=== PATIENT | female | born 1960 | race Caucasian/White ===

== ENCOUNTER 2019-03-20 15:21 | Emergency (ER) | payer MEDICAID ==
[~2019-03-20] VITALS: Ht 154.9 cm; Wt 121.1 kg
[2019-03-20 15:38] VITALS: Ht 154.9 cm; Wt 121.1 kg
[2019-03-20 20:54] VITALS: BP 163/56
== END 2019-03-20 21:11 | disposition home or self-care (01) ==
LOC: ED 15:21
DX: S43.401A Unspecified sprain of right shoulder joint, initial encounter (principal); S09.8XXA Other specified injuries of head, initial encounter; M79.89 Other specified soft tissue disorders; W01.0XXA Fall on same level from slipping, tripping and stumbling without subsequent striking against object, initial encounter; Y93.89 Activity, other specified; Y92.89 Other specified places as the place of occurrence of the external cause; Y99.8 Other external cause status
CPT/HCPCS: J1885; Q0092

== ENCOUNTER 2019-03-31 13:54 | Emergency (ER) | payer MEDICAID ==
[~2019-03-31] VITALS: Ht 154.9 cm; Wt 117.9 kg
[2019-03-31 13:55] VITALS: Ht 154.9 cm; Wt 117.9 kg
[2019-03-31 17:01] VITALS: BP 102/89
== END 2019-03-31 17:01 | disposition home or self-care (01) ==
LOC: ED 13:54
DX: M54.31 Sciatica, right side (principal); I10 Essential (primary) hypertension; E11.9 Type 2 diabetes mellitus without complications; F32.9 Major depressive disorder, single episode, unspecified; E78.00 Pure hypercholesterolemia, unspecified; M19.90 Unspecified osteoarthritis, unspecified site
CPT/HCPCS: J3010; Q0162

== ENCOUNTER 2020-04-16 04:21 | Emergency (ER) | payer OTHER ==
[~2020-04-16] VITALS: Ht 154.9 cm; Wt 129.3 kg
[2020-04-16 04:32] VITALS: Ht 154.9 cm; Wt 129.3 kg
[2020-04-16 05:17] LABS: microscopic required? NO
[2020-04-16 05:33] LABS: BASOPHIL % 1.3 % (0-2); PLATELET COUNT 211 x10^3mcL (130-400); RED CELL DISTRIBUTION WIDTH 15.4 % (11.5-14.5)
[2020-04-16 05:40] LABS: UA SPECIFIC GRAVITY 1.015 (1.005-1.035); urine erythrocyte NEGATIVE (NEGATIVE)
[2020-04-16 05:44] LABS: CALCIUM 8.1 mg/dL (8.5-10.1); CARBON DIOXIDE 30.4 mmol/L (21-32); CHLORIDE SERUM 103 mmol/L (98-107); CREATININE SERUM 0.9 mg/dL (0.6-1.0); GFR1 > 60 mL/min; GLUCOSE SERUM 211 mg/dL (74-106); SODIUM SERUM 139 mmol/L (136-145)
[2020-04-16 05:49] LABS: ALKALINE PHOSPHATASE 153 U/L (46-116); ALT/SGPT 23 U/L (14-59); AST/SGOT 14 U/L (15-37); BILIRUBIN TOTAL 0.6 mg/dL (0.20-1.00); C REACTIVE PROTEIN 2.9 mg/dL (<=0.9); T3 TOTAL 1.14 ng/mL; TOTAL PROTEIN, SERUM 6.8 g/dL (6.4-8.2)
[2020-04-16 05:53] LABS: ALBUMIN 3.1 g/dL (3.4-5.0)
[2020-04-16 05:54] LABS: FREE T4 0.89 ng/dL (0.76-1.46); FREE THYROXINE INDEX 2.4 ug/dL (1.4-4.5); T4(THYROXINE) 7.2 ug/dL (4.7-13.3)
[2020-04-16 06:07] LABS: CK-MB 0.5 ng/mL (0-3.6)
[2020-04-16 06:08] LABS: ERYTHROCYTE SED RATE 42 mm/hr (0-30)
[2020-04-16 08:07] VITALS: BP 149/76
== END 2020-04-16 08:07 | disposition home or self-care (01) ==
LOC: ED 04:21
PROVIDERS: Specialist
DX: K42.9 Umbilical hernia without obstruction or gangrene (principal); K57.92 Diverticulitis of intestine, part unspecified, without perforation or abscess without bleeding; K29.50 Unspecified chronic gastritis without bleeding; I10 Essential (primary) hypertension; E11.9 Type 2 diabetes mellitus without complications; E78.00 Pure hypercholesterolemia, unspecified; M19.90 Unspecified osteoarthritis, unspecified site; Z20.828 Contact with and (suspected) exposure to other viral communicable diseases
CPT/HCPCS: 82962; 84439; 87804; Q0092